=== PATIENT | female | born 1980 | race American Indian/Alaskan Native ===

== ENCOUNTER 2019-07-24 22:55 | Emergency (ER) | payer SELFPAY ==
[2019-07-24 23:17] VITALS: BP 145/103
[2019-07-25] MEDS ORDERED: IBUPROFEN PO ONE (03:08)
[2019-07-25] MEDS ORDERED: BENADRYL PO ONE (03:08)
--- NOTE | 2019-07-25 03:27 | Emergency Department Report ---
ED Eye Problem HPI - General Chief complaint: Eye Problems Stated complaint: SWOLLEN EYE, REDDISH, PAIN Time Seen by Provider: 07/25/19 01:56 Source: patient Mode of arrival: Ambulatory Limitations: No Limitations - History of Present Illness Initial comments: pt presents for left eye and eyelid pain s/p fall 3 days ago there is no loss or decrease vision symptoms described as burning irritation and redness with eyelide bruising there is no swelling eye rom intact unrestricted to all snell. chief complaint: eye pain (eye lid pain ), eye redness Onset/Timin -: days(s) Onset Description: sudden Location: left eye Place: home If Injury: direct trauma Eye Symptoms: burning, redness, pain, itching, discharge (clear ), photophobia Severity: moderate Severity scale (0 -10): 4 If Pain, Quality: burning Consistency: intermittent Context: trauma Associated Symptoms: none - Related Data Patient Tetanus UTD: No Previous Rx's Medication Instructions Recorded Last Taken Type Cyclobenzaprine [Flexeril 10 MG 10 mg PO TID PRN #30 tablet 05/23/15 Unknown Rx TAB] HYDROcodone/APAP 5-325 [[place] 1 each PO Q6HR PRN #20 tablet 05/23/15 Unknown Rx 5-325 mg TAB] Ibuprofen [Motrin 600 MG tab] 600 mg PO Q8H PRN #40 tablet 05/23/15 Unknown Rx Cyclobenzaprine [Flexeril 10 MG 10 mg PO TID PRN #15 tablet 07/23/15 Unknown Rx TAB] Nitrofurantoin [place]/M-Cryst 100 mg PO Q12HR #14 capsule 07/23/15 Unknown Rx [Macrobid CAP] Ondansetron [Zofran Odt] 4 mg PO Q8HR #10 tab.rapdis 07/23/15 Unknown Rx Ciprofloxacin 0.2%(Nf) 1 each OT BID #1 droperette 07/25/19 Unknown Rx [Ciprofloxacin OTIC] Ibuprofen [Motrin 800 MG tab] 800 mg PO Q8HR PRN #30 tablet 07/25/19 Unknown Rx Ketotifen Fumarate [Zaditor] 2 applicator OP BID 10 Days #5 ml 07/25/19 Unknown Rx Allergies Allergy/AdvReac Type Severity Reaction Status Date / Time tomatoes Allergy Itching Uncoded 05/23/15 09:47 ED Review of Systems ROS: Stated complaint: SWOLLEN EYE, REDDISH, PAIN Other details as noted in HPI Constitutional: denies: chills, fever Eyes: eye pain, eye discharge. denies: vision change ENT: denies: ear pain, throat pain Respiratory: denies: cough, shortness of breath, wheezing Cardiovascular: denies: chest pain, palpitations Endocrine: no symptoms reported Gastrointestinal: denies: abdominal pain, nausea, diarrhea Genitourinary: denies: urgency, dysuria, discharge Musculoskeletal: denies: back pain, joint swelling, arthralgia Skin: denies: rash, lesions Neurological: denies: headache, weakness, paresthesias Psychiatric: denies: anxiety, depression Hematological/Lymphatic: denies: easy bleeding, easy bruising ED Past Medical Hx - Past Medical History Hx Hypertension: Yes Additional medical history: Miscarriage. CHRONIC BACK PAIN - Surgical History Additional Surgical History: surgery to side as a child after falling on a glass lamp - Social History Smoking Status: Never Smoker - Medications Home Medications: Home Medications Medication Instructions Recorded Confirmed Last Taken Type Cyclobenzaprine [Flexeril 10 MG 10 mg PO TID PRN #30 tablet 05/23/15 Unknown Rx TAB] HYDROcodone/APAP 5-325 [[place] 1 each PO Q6HR PRN #20 tablet 05/23/15 Unknown Rx 5-325 mg TAB] Ibuprofen [Motrin 600 MG tab] 600 mg PO Q8H PRN #40 tablet 05/23/15 Unknown Rx Cyclobenzaprine [Flexeril 10 MG 10 mg PO TID PRN #15 tablet 07/23/15 Unknown Rx TAB] Nitrofurantoin [place]/M-Cryst 100 mg PO Q12HR #14 capsule 07/23/15 Unknown Rx [Macrobid CAP] Ondansetron [Zofran Odt] 4 mg PO Q8HR #10 tab.rapdis 07/23/15 Unknown Rx Ciprofloxacin 0.2%(Nf) 1 each OT BID #1 droperette 07/25/19 Unknown Rx [Ciprofloxacin OTIC] Ibuprofen [Motrin 800 MG tab] 800 mg PO Q8HR PRN #30 tablet 07/25/19 Unknown Rx Ketotifen Fumarate [Zaditor] 2 applicator OP BID 10 Days #5 ml 07/25/19 Unknown Rx ED Physical Exam - General Limitations: No Limitations General appearance: alert, in no apparent distress - Head Head exam: Present: normocephalic, normal inspection - Expanded Head Exam Expanded Head exam: Absent: abrasion, contusion, hematoma, racoon eyes, osman's sign, general tenderness, tenderness of temporal artery - Eye Eye exam: Present: normal appearance, PERRL, EOMI, conjunctival injection. Absent: scleral icterus, nystagmus, periorbital swelling, periorbital tenderness Pupils: Present: normal accommodation. Absent: mydriatic - Expanded Eye Exam Expanded Eyelids: Normal Inspection: Right, Erythema: Left Pupils: Regular, Round: Bilateral, Reactive: Bilateral Sclera/Conjunctival: Injection: Left, Hemorrhage: Left Posterior chamber: Normal Inspection: Bilateral, Papilledema: Bilateral, Hemorrhage: Bilateral, Retinal Detachment: Bilateral, AV Nicking: Bilateral, Cotton [place] Spots: Bilateral Visual acuity (R) = 20/: 30 Visual acuity (L) = 20/: 30 With correction: No IOP measured with: Schiotz, [place]open - ENT ENT exam: Present: normal orophraynx, mucous membranes moist, TM's normal bilaterally, normal external ear exam - Neck Neck exam: Present: normal inspection. Absent: tenderness, meningismus, full ROM, lymphadenopathy, thyromegaly - Respiratory Respiratory exam: Present: normal lung sounds bilaterally. Absent: respiratory distress, wheezes, stridor, chest wall tenderness - Cardiovascular Cardiovascular Exam: Present: regular rate, normal rhythm, normal heart sounds. Absent: systolic murmur, diastolic murmur, rubs, gallop - GI/Abdominal GI/Abdominal exam: Present: soft, normal bowel sounds, mass. Absent: distended, tenderness, guarding, rebound, rigid - Rectal Rectal exam: Present: deferred - Extremities Exam Extremities exam: Present: normal inspection, full ROM, tenderness, normal capillary refill. Absent: pedal edema, joint swelling, calf tenderness - Back Exam Back exam: Present: normal inspection, full ROM, tenderness, muscle spasm. Absent: CVA tenderness (R), CVA tenderness (L), paraspinal tenderness, vertebral tenderness, rash noted - Neurological Exam Neurological exam: Present: alert - Psychiatric Psychiatric exam: Present: normal affect, normal mood - Skin Skin exam: Present: warm, dry, intact, normal color. Absent: rash ED Course Vital Signs 07/24/19 23:14 Temperature 98.4 F Pulse Rate 76 Respiratory 18 Rate Blood Pressure 145/103 O2 Sat by Pulse 100 Oximetry - Eye Procedure Alcaine Drops Administered: No Eye Irrigated w/ Saline (ccs): 20 Cyclogel 2 Drops Administered: left eye ED Medical Decision Making - Medical Decision Making this is a corneal abrasion , with mild conjunctivitis, plan: cipro opthal follow up , zaditor, return to ed if symptoms worsen, Critical care attestation.: If time is entered above; I have spent that time in minutes in the direct care of this critically ill patient, excluding procedure time. ED Disposition Clinical Impression: Conjunctivitis Qualifiers: Conjunctivitis type: acute Acute conjunctivitis type: viral Laterality: unspecified laterality Qualified Code(s): B30.9 - Viral conjunctivitis, unspecified Corneal abrasion Qualifiers: Encounter type: initial encounter Laterality: left Qualified Code(s): S05.02XA - Injury of conjunctiva and corneal abrasion without foreign body, left eye, initial encounter Disposition: DC- TO HOME OR SELFCARE Is pt being admited?: No Does the pt Need Aspirin: No Condition: Good Instructions: Corneal Abrasion (ED), Conjunctivitis (ED) Prescriptions: Ciprofloxacin 0.2%(Nf) [Ciprofloxacin OTIC] 1 each OT BID #1 droperette Ibuprofen [Motrin 800 MG tab] 800 mg PO Q8HR PRN #30 tablet PRN Reason: pain Ketotifen Fumarate [Zaditor] 2 applicator OP BID 10 Days #5 ml Referrals: OSMAR DOWNING MD [Primary Care Provider] - 3-5 Days Forms: Work/School Release Form(ED) Time of Disposition: 03:45
[2019-07-25] MEDS: FUL-GLO OP ONE ×2 (03:31→03:57)
[2019-07-25] MEDS: TETRACAINE 0.5% OU ONE ×2 (03:31→03:57)
== END 2019-07-25 03:59 | disposition home or self-care (01) ==
LOC: ED 22:55
DX: S05.02XA Injury of conjunctiva and corneal abrasion without foreign body, left eye, initial encounter (principal); H10.9 Unspecified conjunctivitis; I10 Essential (primary) hypertension; Z91.018 Allergy to other foods; X58.XXXA Exposure to other specified factors, initial encounter; Y93.89 Activity, other specified; Y92.89 Other specified places as the place of occurrence of the external cause; Y99.8 Other external cause status

== ENCOUNTER 2019-09-14 10:16 | Emergency (ER) | payer SELFPAY ==
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
[2019-09-14 14:20] VITALS: BP 130/90
== END 2019-09-14 14:31 | disposition home or self-care (01) ==
LOC: ED 10:16
DX: S01.81XD Laceration without foreign body of other part of head, subsequent encounter (principal); I10 Essential (primary) hypertension; F17.200 Nicotine dependence, unspecified, uncomplicated; G89.29 Other chronic pain; Z79.899 Other long term (current) drug therapy; Z91.018 Allergy to other foods; X58.XXXD Exposure to other specified factors, subsequent encounter

== ENCOUNTER 2020-10-30 09:40 | Observation (INO) | payer OTHER ==
[2020-10-30] MEDS ORDERED: HYDROcodone/ACETAMINOPHEN 10-325MG TAB PO ONE (15:26)
[2020-10-30 15:59] LABS: Bilirubin,Urine NEG (Negative); Blood,Urine NEG (Negative); Color,Urine Yellow (Yellow); HCG Qualitative,Urine Negative (Negative); Mucus,Urine 3+ /HPF; RBC,Urine > 182.0 /HPF (0.0-6.0)
--- NOTE | 2020-10-30 16:56 | Emergency Department Report ---
ED Back Pain/Injury HPI - General Chief Complaint: Back Pain/Injury Stated Complaint: BACK PAIN/SOB Time Seen by Provider: 10/30/20 15:26 Source: patient Limitations: No Limitations - History of Present Illness Initial Comments: This is a 40-year-old female nontoxic, well nourished in appearance, no acute signs of distress presents to the ED with c/o of right posterior rib pain x1 day. Patient stated that she was hit accidentally while playing outdoors with son by a scooter. Patient denies any loss of consciousness or any other injuries or trauma. Patient stated pain increased with deep breaths. Patient denies any chest pain, shortness of breath, fever, chills, nausea, vomiting, headache, stiff neck, numbness or tingling. Patient denies any drug allergies or significant past medical history. -: days(s) Place: street Radiation: none Severity: mild Severity scale (0 -10): 8 Quality: aching Consistency: intermittent Improves With: immobilization Worsens With: deep breaths/cough, other (palpation) Associated Symptoms: denies other symptoms. denies: confusion, weakness, chest pain, numbness, difficulty walking, cough, difficulty urinating, diaphoresis, incontinence, fever/chills, constipation, headaches, abdominal pain, loss of appetite, malaise, nausea/vomiting, rash, seizure, shortness of breath, syncope - Related Data Previous Rx's Medication Instructions Recorded Last Taken Type Cyclobenzaprine [Flexeril 10 MG 10 mg PO TID PRN #30 tablet 05/23/15 Unknown Rx TAB] HYDROcodone/APAP 5-325 [Davis 1 each PO Q6HR PRN #20 tablet 05/23/15 Unknown Rx 5-325 mg TAB] Ibuprofen [Motrin 600 MG tab] 600 mg PO Q8H PRN #40 tablet 05/23/15 Unknown Rx Cyclobenzaprine [Flexeril 10 MG 10 mg PO TID PRN #15 tablet 07/23/15 Unknown Rx TAB] Nitrofurantoin [place]/M-Cryst 100 mg PO Q12HR #14 capsule 07/23/15 Unknown Rx [Macrobid CAP] Ondansetron [Zofran Odt] 4 mg PO Q8HR #10 tab.rapdis 07/23/15 Unknown Rx Ciprofloxacin 0.2%(Nf) 1 each OT BID #1 droperette 07/25/19 Unknown Rx [Ciprofloxacin OTIC] Ibuprofen [Motrin 800 MG tab] 800 mg PO Q8HR PRN #30 tablet 07/25/19 Unknown Rx Ketotifen Fumarate [Zaditor] 2 applicator OP BID 10 Days #5 ml 07/25/19 Unknown Rx Ciprofloxacin HCl [Ciloxan] 2 drops OP Q3HR 7 Days #1 bottle 07/27/19 Unknown Rx Sulfamethoxazole/Trimethoprim 1 each PO BID 10 Days #20 tablet 09/14/19 Unknown Rx [Bactrim DS TAB] Allergies Allergy/AdvReac Type Severity Reaction Status Date / Time tomatoes Allergy Itching Uncoded 05/23/15 09:47 ED Review of Systems ROS: Stated complaint: BACK PAIN/SOB Other details as noted in HPI Constitutional: denies: chills, fever Eyes: denies: eye pain, eye discharge, vision change ENT: denies: ear pain, throat pain Respiratory: denies: cough, shortness of breath, wheezing Cardiovascular: denies: chest pain, palpitations Endocrine: no symptoms reported Gastrointestinal: denies: abdominal pain, nausea, diarrhea Genitourinary: denies: urgency, dysuria, discharge Musculoskeletal: denies: back pain, joint swelling, arthralgia Skin: denies: rash, lesions Neurological: denies: headache, weakness, paresthesias Psychiatric: denies: anxiety, depression Hematological/Lymphatic: denies: easy bleeding, easy bruising ED Past Medical Hx - Past Medical History Hx Hypertension: Yes Additional medical history: Miscarriage. CHRONIC BACK PAIN - Surgical History Additional Surgical History: surgery to side as a child after falling on a glass lamp - Social History Smoking Status: Current Every Day Smoker Substance Use Type: Alcohol - Medications Home Medications: Home Medications Medication Instructions Recorded Confirmed Last Taken Type Cyclobenzaprine [Flexeril 10 MG 10 mg PO TID PRN #30 tablet 05/23/15 Unknown Rx TAB] HYDROcodone/APAP 5-325 [Davis 1 each PO Q6HR PRN #20 tablet 05/23/15 Unknown Rx 5-325 mg TAB] Ibuprofen [Motrin 600 MG tab] 600 mg PO Q8H PRN #40 tablet 05/23/15 Unknown Rx Cyclobenzaprine [Flexeril 10 MG 10 mg PO TID PRN #15 tablet 07/23/15 Unknown Rx TAB] Nitrofurantoin [place]/M-Cryst 100 mg PO Q12HR #14 capsule 07/23/15 Unknown Rx [Macrobid CAP] Ondansetron [Zofran Odt] 4 mg PO Q8HR #10 tab.rapdis 07/23/15 Unknown Rx Ciprofloxacin 0.2%(Nf) 1 each OT BID #1 droperette 07/25/19 Unknown Rx [Ciprofloxacin OTIC] Ibuprofen [Motrin 800 MG tab] 800 mg PO Q8HR PRN #30 tablet 07/25/19 Unknown Rx Ketotifen Fumarate [Zaditor] 2 applicator OP BID 10 Days #5 ml 07/25/19 Unknown Rx Ciprofloxacin HCl [Ciloxan] 2 drops OP Q3HR 7 Days #1 bottle 07/27/19 Unknown Rx Sulfamethoxazole/Trimethoprim 1 each PO BID 10 Days #20 tablet 09/14/19 Unknown Rx [Bactrim DS TAB] ED Physical Exam - General Limitations: No Limitations General appearance: alert, in no apparent distress - Head Head exam: Present: atraumatic, normocephalic - Eye Eye exam: Present: normal appearance - Neck Neck exam: Present: normal inspection, full ROM. Absent: tenderness, meningismus, lymphadenopathy - Respiratory Respiratory exam: Present: normal lung sounds bilaterally. Absent: respiratory distress, wheezes, rales, rhonchi, stridor, chest wall tenderness, accessory muscle use, decreased breath sounds, prolonged expiratory - Cardiovascular Cardiovascular Exam: Present: regular rate, normal rhythm, normal heart sounds. Absent: bradycardia, tachycardia, irregular rhythm, systolic murmur, diastolic murmur, rubs, gallop - GI/Abdominal GI/Abdominal exam: Present: soft. Absent: distended, tenderness - Extremities Exam Extremities exam: Present: normal inspection, full ROM - Back Exam Back exam: Present: normal inspection, full ROM. Absent: tenderness, CVA tenderness (R), CVA tenderness (L), muscle spasm, paraspinal tenderness, vertebral tenderness, rash noted - Expanded Back Exam Expanded 1 - pain here - Neurological Exam Neurological exam: Present: alert, oriented X3, normal gait - Psychiatric Psychiatric exam: Present: normal affect, normal mood - Skin Skin exam: Present: warm, dry, intact, normal color. Absent: rash ED Course Vital Signs 10/30/20 09:53 Temperature 98.4 F Pulse Rate 78 Respiratory 16 Rate Blood Pressure 114/84 O2 Sat by Pulse 98 Oximetry - Reevaluation(s) Reevaluation #1: 10/30/20 16:55 Patient is speaking in full sentences with no signs of distress noted. - Consultations Consultation #1: 10/30/20 17:05 Patient has been consulted with Clari Ching about patient history, physical exam, and labs/CT results and agrees for admission. Consultation #2: 10/30/20 17:06 Patient has been consulted with Dr. Galloway (general surgery) about patient history, physical exam, and labs/CT results and agrees for admission. Consultation #3: 10/30/20 17:11 Patient has been consulted with Dr. Julien about patient history, physical exam, and CT results and accepts patient. ED Medical Decision Making - Lab Data Lab Results 10/30/20 Range/Units Unknown Urine Color Yellow (Yellow) Urine Turbidity Cloudy (Clear) Urine pH 5.0 (5.0-7.0) Ur Specific West 1.028 (1.003-1.030) Urine Protein 30 mg/dl (Negative) mg/dL Urine Glucose (UA) Neg (Negative) mg/dL Urine Ketones 20 (Negative) mg/dL Urine Blood Neg (Negative) Urine Nitrite Neg (Negative) Urine Bilirubin Neg (Negative) Urine Urobilinogen 2.0 (<2.0) mg/dL Ur Leukocyte Esterase Neg (Negative) Urine WBC (Auto) 4.0 (0.0-6.0) /HPF Urine RBC (Auto) > 182.0 (0.0-6.0) /HPF U Epithel Cells (Auto) 6.0 (0-13.0) /HPF Urine Mucus 3+ /HPF Urine HCG, Qual Negative (Negative) - Radiology Data Referring Physician: GRANT REBOLLEDO Patient Name: WALTER CASTELLANOS Date of : 1980 Sex: Female Report Date: 2020-10-30 Report Status: Finalized [address] [address] Cat Scan Report Signed Patient: WALTER CASTELLANOS MR#: [id number] : 1980 Acct:[id number] Age/Sex: 40 / F ADM Date: 10/30/20 Loc: ED Attending Dr: Ordering Physician: GRANT REBOLLEDO NP Date of Service: 10/30/20 Procedure(s): CT chest wo con Accession Number(s): [id number] cc: GRANT REBOLLEDO NP CT OF THE CHEST WITHOUT CONTRAST INDICATION / CLINICAL INFORMATION: Right rib pain. TECHNIQUE: All CT scans at this location are performed using CT dose reduction for ALARA by means of automated exposure control. COMPARISON: None available. FINDINGS: There are acute, mildly displaced fractures of the right ninth and 10th ribs posterolaterally. There is minimal associated subcutaneous emphysema. Mild right basilar subsegmental atelectasis is present. There is a t iny associated right pneumothorax. No pleural effusion is seen. The left lung is clear. The visualized upper abdomen is normal. IMPRESSION: 1. Acute, mildly displaced fractures of the right ninth and 10th ribs posterolaterally. 2. Tiny associated right pneumothorax. Mild right basilar subsegmental atelectasis. Signer Name: Carlos Estevez MD Signed: 10/30/2020 4:52 PM Workstation Name: [id number] Transcribed By: RT Dictated By: Carlos Estevez MD Electronically Authenticated By: Carlos Estevez MD Signed Date/Time: 10/30/201651 DD/ 45 TD/TT: - Medical Decision Making 40-year-old female that presents with rib fractures and pneumothorax. Patient is stable and was examined by me. Patient is notified of the CT results with no questions noted by the patient. Patient admitted with hospitalist for further evaluation and treatment. At time of admission, the patient does not seem toxic or ill in appearance. No acute signs of distress noted. Patient agrees to admission treatment plan of care. No further questions noted by the patient. Critical care attestation.: If time is entered above; I have spent that time in minutes in the direct care of this critically ill patient, excluding procedure time. ED Disposition Clinical Impression: Multiple rib fractures Qualifiers: Encounter type: initial encounter Fracture type: closed Laterality: right Qualified Code(s): S22.41XA - Multiple fractures of ribs, right side, initial encounter for closed fracture Pneumothorax Qualifiers: Pneumothorax type: traumatic Encounter type: initial encounter Qualified Code(s): S27.0XXA - Traumatic pneumothorax, initial encounter Disposition: DC-09 OP ADMIT IP TO THIS HOSP Is pt being admited?: Yes Condition: Stable
[2020-10-30] MEDS ORDERED: ONDANSETRON 4 MG/2 ML INJ IV ONE (17:14)
[2020-10-30] MEDS ORDERED: SODIUM CHLORIDE 0.9% 1000 ML 1,000 ML IV ONE (17:14)
[2020-10-30] MEDS ORDERED: MORPHINE 4 MG/1 ML INJ IV ONE (17:14)
--- NOTE | 2020-10-30 17:26 | Event Note ---
Date: 10/30/20 awaiting lab results. at 1526. NO results at this time.
--- NOTE | 2020-10-30 17:32 | XRay Report ---
CHEST 2 VIEWS INDICATION: right rib fracture with pneumothorax. COMPARISON: CT chest earlier the same day FINDINGS: Support devices: None. Heart: Within normal limits. Lungs: No acute air space or interstitial disease. Pleura: No significant pleural effusion. No pneumothorax. Additional findings: None. IMPRESSION: 1. No acute findings. No definite pneumothorax identified Signer Name: Jose Draper MD Signed: 10/30/2020 5:27 PM Workstation Name: [id number]
[2020-10-30 17:44] LABS: Basophils % (Auto) 0.4 % (0.0-1.8); Eosinophils % (Auto) 0.3 % (0.0-4.3); Hematocrit 36.9 % (30.3-42.9); Hemoglobin 12.1 gm/dl (10.1-14.3); Lymphocytes # (Auto) 3.8 K/mm3 (1.2-5.4); Mean Corpuscular HGB Conc 33 % (30-34); Mean Corpuscular Volume 76 fl (79-97); Monocytes # (Auto) 1.1 K/mm3 (0.0-0.8); Monocytes % (Auto) 11.4 % (0.0-7.3); Platelet Count 283 K/mm3 (140-440); Red Blood Count 4.87 M/mm3 (3.65-5.03); Red Cell Distribution Width 14.7 % (13.2-15.2)
[2020-10-30] MEDS ORDERED: ALBUTEROL 2.5 MG/3 ML NEBU IH PRN (17:49)
[2020-10-30] MEDS ORDERED: ACETAMINOPHEN 325 MG TAB PO PRN (17:49)
[2020-10-30] MEDS ORDERED: oxyCODONE /ACETAMINOPHEN 5-325MG TAB PO PRN (17:49)
[2020-10-30] MEDS ORDERED: ONDANSETRON 4 MG/2 ML INJ IV PRN (17:49)
--- NOTE | 2020-10-30 17:52 | History and Physical Report ---
History of Present Illness Chief complaint: My back hurts History of present illness: 40 YO Female with HTN, Nicotine Dependence presents to ED for evaluation. Patient states that she has experienced pain in her right back over the past 1 day which began after she was hit in her back accidentally while playing with h er son. Patient states that the pain is 8/10, localized to the right back, pain is worsened with deep breathing, worsened with movement, relieved with nonmovement and shallow breathing. Patient transported to [facility] via private vehicle for further care and evaluation of the aforementioned symptoms. Patient seen and evaluated in the emergency department. All lab and imaging studies reviewed. Patient underwent chest x-ray which was normal. Patient underwent CT scan of the chest which revealed right ninth and 10th rib fracture with small concomitant pneumothorax which was not visible on chest x-ray. Patient placed in observation status and placed on supplemental oxygen as well as pain control with improvement in symptoms. General surgery team consulted in ED. Patient denies any chest pain, shortness of breath, fever, chills, nausea, vomiting, headache, stiff neck, numbness, skin rash, recent ill contacts, or known exposure to COVID-19. No prior admission for review. All medication listed at time of admission has been reconciled. Past History Past Medical History: hypertension Past Surgical History: Other (Right chest wall surgery) Social history: single, lives with family, smoking. denies: prescription drug abuse Family history: diabetes, hypertension Medications and Allergies Allergies Allergy/AdvReac Type Severity Reaction Status Date / Time tomatoes Allergy Itching Uncoded 05/23/15 09:47 Home Medications Medication Instructions Recorded Confirmed Last Taken Type Cyclobenzaprine [Flexeril 10 MG 10 mg PO TID PRN #30 tablet 05/23/15 Unknown Rx TAB] HYDROcodone/APAP 5-325 [[place] 1 each PO Q6HR PRN #20 tablet 05/23/15 Unknown Rx 5-325 mg TAB] Ibuprofen [Motrin 600 MG tab] 600 mg PO Q8H PRN #40 tablet 05/23/15 Unknown Rx Cyclobenzaprine [Flexeril 10 MG 10 mg PO TID PRN #15 tablet 07/23/15 Unknown Rx TAB] Nitrofurantoin [place]/M-Cryst 100 mg PO Q12HR #14 capsule 07/23/15 Unknown Rx [Macrobid CAP] Ondansetron [Zofran Odt] 4 mg PO Q8HR #10 tab.rapdis 07/23/15 Unknown Rx Ciprofloxacin 0.2%(Nf) 1 each OT BID #1 droperette 07/25/19 Unknown Rx [Ciprofloxacin OTIC] Ibuprofen [Motrin 800 MG tab] 800 mg PO Q8HR PRN #30 tablet 07/25/19 Unknown Rx Ketotifen Fumarate [Zaditor] 2 applicator OP BID 10 Days #5 ml 07/25/19 Unknown Rx Ciprofloxacin HCl [Ciloxan] 2 drops OP Q3HR 7 Days #1 bottle 07/27/19 Unknown Rx Sulfamethoxazole/Trimethoprim 1 each PO BID 10 Days #20 tablet 09/14/19 Unknown Rx [Bactrim DS TAB] Active Meds: Active Medications Acetaminophen (Acetaminophen 325 Mg Tab) 650 mg PO Q4H PRN PRN Reason: Pain MILD(1-3)/Fever >100.5/CANNON Albuterol (Albuterol 2.5 Mg/3 Ml Nebu) 2.5 mg IH Q4HRT PRN PRN Reason: Shortness Of Breath Cyclobenzaprine HCl (Cyclobenzaprine 10 Mg Tab) 10 mg PO TID PRN PRN Reason: Muscle Spasm Sodium Chloride (Nacl 0.9% 1000 Ml) 1,000 mls @ 999 mls/hr IV BOLUS ONE Stop: 10/30/20 18:14 Last Admin: 10/30/20 17:36 Dose: 999 mls/hr Documented by: Morphine Sulfate (Morphine 4 Mg/1 Ml Inj) 2 mg IV Q4H PRN PRN Reason: Pain , Severe (7-10) Ondansetron HCl (Ondansetron 4 Mg/2 Ml Inj) 4 mg IV Q8H PRN PRN Reason: Nausea And Vomiting Ondansetron HCl (Ondansetron 4 Mg Odt Tab) 4 mg PO Q8HR SATHYA Oxycodone/Acetaminophen (Oxycodone /Acetaminophen 5-325mg Tab) 1 tab PO Q6H PRN PRN Reason: Pain, Moderate (4-6) Sodium Chloride (Sodium Chloride 0.9% 10 Ml Flush Syringe) 10 ml IV BID SATHYA Sodium Chloride (Sodium Chloride 0.9% 10 Ml Flush Syringe) 10 ml IV PRN PRN PRN Reason: LINE FLUSH Review of Systems Constitutional: no weight loss, no weight gain, no fever, no chills Ears, nose, mouth and throat: no ear pain, no ear discharge, no decreased hearing, no nose pain, no nasal congestion, no nasal discharge Breasts: no change in shape, no swelling Cardiovascular: no chest pain, no orthopnea, no palpitations Respiratory: pleurisy, pain on inspiration, no cough, no cough with sputum, no excessive sputum, no hemoptysis, no shortness of breath Gastrointestinal: no abdominal pain, no vomiting, no diarrhea, no constipation, no change in bowel habits, no hematemesis Genitourinary Female: no pelvic pain, no flank pain, no dysuria, no urinary frequency, no urgency Rectal: no pain, no incontinence, no bleeding Musculoskeletal: no neck stiffness, no neck pain, no arm numbness/tingling, no shooting leg pain Integumentary: no rash, no pruritis, no redness, no wounds, no jaundice, no boils Neurological: no head injury, no transient paralysis, no weakness, no numbness, no tingling Psychiatric: no anxiety, no change in sleep habits, no insomnia, no change in appetite, no suicidal ideation Endocrine: no cold intolerance, no polyuria Hematologic/Lymphatic: no easy bruising, no easy bleeding, no lymphadenopathy, no lymphedema Allergic/Immunologic: no allergic rhinitis, no wheezing, no persistent infections, no angioedema Exam - Constitutional Vitals: Temp Pulse Resp BP Pulse Ox 98.4 F 78 16 114/84 98 10/30/20 09:53 10/30/20 09:53 10/30/20 09:53 10/30/20 09:53 10/30/20 09:53 General appearance: Present: mild distress - EENT Eyes: Present: PERRL ENT: hearing intact, clear oral mucosa - Neck Neck: Present: supple, normal ROM - Respiratory Respiratory effort: normal Respiratory: bilateral: CTA - Cardiovascular Heart Sounds: Present: S1 & S2. Absent: rub, click - Extremities Extremities: pulses symmetrical, No edema Peripheral Pulses: within normal limits - Abdominal General gastrointestinal: Present: soft, non-tender, non-distended, normal bowel sounds Female genitourinary: Present: normal - Integumentary Integumentary: Present: clear, warm, dry - Musculoskeletal Musculoskeletal: gait normal, strength equal bilaterally - Psychiatric Psychiatric: appropriate mood/affect, intact judgment & insight - Neurologic Neurologic: CNII-XII intact, moves all extremities Results - Labs CBC & Chem 7: 10/30/20 17:16 10/30/20 17:16 Labs: Abnormal lab results 10/30/20 Range/Units 17:16 MCV 76 L (79-97) fl MCH 25 L (28-32) pg Lymph % (Auto) 39.0 H (13.4-35.0) % Bradley % (Auto) 11.4 H (0.0-7.3) % Bradley # (Auto) 1.1 H (0.0-0.8) K/mm3 Assessment and Plan - Patient Problems (1) Pneumothorax Current Visit: Yes Status: Acute Qualifiers: Pneumothorax type: traumatic Encounter type: initial encounter Qualified Code(s): S27.0XXA - Traumatic pneumothorax, initial encounter Plan to address problem: General surgery team consulted in ED, small pneumothorax not seen on chest x- ray, repeat chest x-ray in a.m., supportive care, supplemental oxygen, incentive spirometry, pulse oximetry, pain control, (2) Nicotine dependence Current Visit: Yes Status: Acute Qualifiers: Nicotine product type: cigarettes Substance use status: in withdrawal Qualified Code(s): F17.213 - Nicotine dependence, cigarettes, with withdrawal Plan to address problem: Smoking cessation counseling, supportive care, behavior change counseling, +15 minutes (3) Hypertension Current Visit: Yes Status: Acute Qualifiers: Hypertension type: essential hypertension Qualified Code(s): I10 - Essent ial (primary) hypertension Plan to address problem: Monitor blood pressure every shift, continue medical management (4) Multiple rib fractures Current Visit: Yes Status: Acute Qualifiers: Encounter type: initial encounter Fracture type: closed Laterality: right Qualified Code(s): S22.41XA - Multiple fractures of ribs, right side, initial encounter for closed fracture Plan to address problem: CT scan chest, chest x-ray, supportive care, pain control (5) DVT prophylaxis Current Visit: Yes Status: Acute Plan to address problem: SCD to bilateral lower extremities while in bed, patient is ambulatory
[2020-10-30 18:00] LABS: Blood Urea Nitrogen 6 mg/dL (7-17); Calcium 8.8 mg/dL (8.4-10.2); Hemolysis Index 20
[2020-10-30 18:17] LABS: BUN/Creatinine Ratio 10
[2020-10-30] MEDS: MORPHINE 4 MG/1 ML INJ IV PRN (21:38)
[2020-10-30] MEDS: ONDANSETRON 4 MG ODT TAB PO SCH (21:38)
[2020-10-30] MEDS: CYCLOBENZAPRINE 10 MG TAB PO PRN (21:38)
[2020-10-31] MEDS: MORPHINE 4 MG/1 ML INJ IV PRN ×3 (01:52→06:10)
[2020-10-31 05:53] VITALS: BP 119/75
[2020-10-31] MEDS: ONDANSETRON 4 MG ODT TAB PO SCH (06:07)
--- NOTE | 2020-10-31 09:42 | XRay Report ---
CHEST 2 VIEWS INDICATION: pneumothorax. COMPARISON: FINDINGS: Support devices: None. Heart: Within normal limits. Lungs: No acute air space or interstitial disease. Pleura: No significant pleural effusion. Very small less than 1% right pneumothorax Additional findings: None. IMPRESSION: 1. Very small right pneumothorax Signer Name: oJse Draper MD Signed: 10/31/2020 9:38 AM Workstation Name: [id number]
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
--- NOTE | 2020-10-31 10:53 | Discharge Summary ---
Providers - Providers Date of Admission: 10/30/20 17:49 Attending physician: VIKTORIYA NICK 10/30/20 18:02 Consult to Physician [CONS] Urgent Comment: Consulting Provider: TRISHA BISWAS Physician Instructions: Reason For Exam: Rib fracture with pneumothorax Primary care physician: [employer] Hospitalization Condition: Stable - Discharge Diagnoses (1) Pneumothorax Status: Acute Qualifiers: Pneumothorax type: traumatic Encounter type: initial encounter Qualified Code(s): S27.0XXA - Traumatic pneumothorax, initial encounter (2) Nicotine dependence Status: Acute Qualifiers: Nicotine product type: cigarettes Substance use status: in withdrawal Qualified Code(s): F17.213 - Nicotine dependence, cigarettes, with withdrawal (3) Hypertension Status: Acute Qualifiers: Hypertension type: essential hypertension Qualified Code(s): I10 - Essential (primary) hypertension (4) Multiple rib fractures Status: Acute Qualifiers: Encounter type: initial encounter Fracture type: closed Laterality: right Qualified Code(s): S22.41XA - Multiple fractures of ribs, right side, initial encounter for closed fracture (5) DVT prophylaxis Status: Acute Exam - Constitutional Vitals: Temp Pulse Resp BP Pulse Ox 97.8 F 48 L 18 119/75 100 10/31/20 04:29 10/31/20 04:29 10/31/20 04:29 10/31/20 04:29 10/31/20 04:29 Plan Follow up with: ODILON BACA MD [Primary Care Provider] - 7 Days
[2020-10-31] MEDS: CYCLOBENZAPRINE 10 MG TAB PO PRN (11:58)
== END 2020-10-31 14:04 | disposition home or self-care (01) ==
LOC: ED 09:40 → 3A 17:49 → 3B-SURG 18:31
PROVIDERS: ADMIT Internal Medicine; ATTEND Internal Medicine
DX: S27.0XXA Traumatic pneumothorax, initial encounter (principal); S22.41XA Multiple fractures of ribs, right side, initial encounter for closed fracture; I10 Essential (primary) hypertension; F17.213 Nicotine dependence, cigarettes, with withdrawal; Z98.890 Other specified postprocedural states; W22.8XXA Striking against or struck by other objects, initial encounter; Y93.89 Activity, other specified; Y92.89 Other specified places as the place of occurrence of the external cause; Y99.8 Other external cause status
CPT/HCPCS: 36415; 71046; 71250; 80048; 81001; 81025; 85025; 96361; 96374; 96375; 96376; 99284; G0378; J2270; J2405; J7030; Q0162

== ENCOUNTER 2021-02-22 03:39 | Emergency (ER) | payer SELFPAY ==
[2021-02-22 03:48] VITALS: BP 114/73
== END 2021-02-22 08:49 ==
LOC: ED 03:39
DX: M54.2 Cervicalgia (principal); Z53.21 Procedure and treatment not carried out due to patient leaving prior to being seen by health care provider